=== PATIENT | female | born 1965 | race Caucasian/White ===

== ENCOUNTER 2016-10-09 08:42 | Day surgery (SDC) | payer OTHER ==
[~2016-10-09] VITALS: Ht 154.9 cm; Wt 56.3 kg
[2016-10-09 09:44] VITALS: Ht 154.9 cm; Wt 56.3 kg
[2016-10-09] MEDS ORDERED: INHALER (09:50)
[2016-10-09] MEDS ORDERED: ARTHRITIS MED (09:50)
[2016-10-09] MEDS ORDERED: PROPOFOL 40 ML ONE (09:51)
[2016-10-09] MEDS ORDERED: LIDOCAINE 2% (SDV) 5 ML INJ ONE (09:52)
[2016-10-09 09:58] VITALS: BP 112/69; PULSE 56; RESP 18
[2016-10-09 10:46] VITALS: BP 116/78; PULSE 73; RESP 19
--- NOTE | 2016-10-09 11:06 | GILP ---
DATE OF PROCEDURE: 10/09/2016 PROCEDURE PERFORMED: Colonoscopy with biopsy. INDICATION: A 50-year-old female undergoing this procedure for rectal bleeding. INFORMED CONSENT: The risk of the procedure, related and unrelated complications, anesthetic risks, and alternatives discussed. Informed consent was obtained. DESCRIPTION OF PROCEDURE: The patient was brought to the GI lab, sedated by Dr. Conley. After optima l sedation, scope was passed with much ease into rectum, advanced to sigmoid, descending, transverse colon all the way into cecum. Appendiceal orifice and IC valve identified. It was normal. Rest o f the colon appeared normal. Retroflexion could not be done because of small rectum. She had a sma ll hemorrhoid. Digital examination done which was normal. No mass felt. Clarity and cleanliness w as good. IMPRESSION: 1. Normal findings all the way into cecum. 2. Clarity and cleanliness was good. 3. Small hemorrhoids identified, which is the cause of bleeding. PLAN: To have Sitz bath and Anusol-HC suppository. Dictated By: BRANDON SALGADO/REA Conf#: [id number] DID#: [id number]
== END 2016-10-09 11:04 | disposition home or self-care (01) ==
LOC: GIL 08:42
PROVIDERS: ATTEND Internal Medicine Gastroenterology
DX: K64.8 Other hemorrhoids (principal); J45.909 Unspecified asthma, uncomplicated
CPT/HCPCS: 45378; 84703; Z7610

== ENCOUNTER 2017-01-01 08:29 | Day surgery (SDC) | payer OTHER ==
[~2017-01-01] VITALS: Ht 157.5 cm; Wt 53.6 kg
[~2017-01-01 08:29] MED LIST: ARTHRITIS MED; INHALER
[2017-01-01 09:30] VITALS: Ht 157.5 cm; Wt 53.6 kg
[2017-01-01] MEDS ORDERED: LIDOCAINE 4% SOLUTION 50 ML BTL ONE (09:43)
[2017-01-01] MEDS ORDERED: LIDOCAINE 2% JELLY 5 ML ONE (09:43)
[2017-01-01 09:55] VITALS: BP 110/59; PULSE 57; RESP 18
[2017-01-01 10:40] VITALS: BP 121/67; PULSE 67; RESP 18
[2017-01-01] MEDS ORDERED: MIDAZOLAM 1 MG/ML 2 ML INJ ONE ×2 (11:27)
[2017-01-01] MEDS ORDERED: FENTAnyl 50 MCG/ML VIAL ONE (11:35)
--- NOTE | 2017-01-01 11:35 | GILP ---
DATE OF PROCEDURE: 01/01/2017 PROCEDURE PERFORMED: EGD with biopsy. INDICATION: The patient is a 51-year-old female undergoing this procedure for persistent nausea. T he risk of the procedure, related and unrelated complications, anesthetic risks, alternatives discus sed and informed consent was obtained. DESCRIPTION OF PROCEDURE: The patient was brought to the GI lab, sedated with Versed 4 mg and fenta nyl 50 mcg. After optimal sedation, scope was passed with much ease into esophagus which was grossl y within normal limits. Z line was at 39 cm. Advanced further down into stomach, the patient had s evere gastritis. Multiple biopsies taken also from the pyloric channel to rule out H. pylori infect ion and intestinal metaplasia of the duodenum. First and second part appeared normal. Retroversion in the stomach conformed gastritis. The scope was then straightened out and removed with good patient tolerance. IMPRESSION: 1. Pangastritis, severe. 2. Normal esophagus. 3. Z line at 39 cm. 4. Normal duodenum. PLAN: Review histopathology. Continue proton pump inhibitor. If despite this treatment, patient c ontinues to have symptoms, then we should obtain sonogram of the gallbladder to make sure there is n o bile duct stone. Dictated By: BRANDON SALGADO/REA Conf#: [id number] DID#: [id number]
== END 2017-01-01 11:58 | disposition home or self-care (01) ==
LOC: GIL 08:29
PROVIDERS: ATTEND Internal Medicine Gastroenterology
DX: K29.50 Unspecified chronic gastritis without bleeding (principal)
CPT/HCPCS: 43239; 88305; 88312; J2250; J3010; Z7610